=== PATIENT | female | born 1980 ===

== ENCOUNTER 2017-04-07 16:00 | Emergency (ER) | payer MEDICAID ==
[2017-04-07 16:00] VITALS: BMI 39.0
[2017-04-07 16:11] VITALS: RESP 18; TEMP 97.6; O2SAT 98
--- NOTE | 2017-04-07 16:35 | ED PDOC ---
Arrival/HPI - General Chief Complaint: Lower Extremity Problem/Injury Time Seen by Provider: 04/07/17 16:09 Historian: Patient - History of Present Illness Narrative History of Present Illness (Text): 04/07/17 16:31 This 37 yo female with pmh fibromyalgia, depression, insomnia, presents to this Emergency department complaining of bilateral leg and feet swelling for 4 days. Patient stated these symptoms have intermittent for several months. Patient denies fever, shortness of breath, chest pain, abdominal pain, urinary symptoms, calf pain, skin rash, recent surgical procedure, recent travel, recent trauma, hormonal replacement use, blood disorder, dizziness, or abnormal gait. Time/Duration: Other (see hpi) Context: Home Past Medical History - Provider Review Nursing Documentation Reviewed: Yes - Infectious Disease Hx of Infectious Diseases: None - Cardiac Hx Cardiac Disorders: No - Pulmonary Hx Asthma: Yes Hx Bronchitis: Yes - Neurological Hx Neurological Disorder: No - HEENT Hx HEENT Disorder: No - Renal Hx Renal Disorder: No - Endocrine/Metabolic Hx Endocrine Disorders: No - Hematological/Oncological Hx Blood Disorders: No - Integumentary Hx Dermatological Disorder: No - Musculoskeletal/Rheumatological Hx Musculoskeletal Disorders: Yes - Gastrointestinal Hx Gastrointestinal Disorders: No - Genitourinary/Gynecological Hx Genitourinary Disorders: No - Psychiatric Hx Anxiety: Yes Hx Depression: Yes Hx Substance Use: No - Surgical History Hx Section: Yes (x1) Other/Comment: Lipoma removed to back of neck. - Anesthesia Hx Anesthesia: Yes Hx Anesthesia Reactions: No Hx Malignant Hyperthermia: No - Suicidal Assessment Feels Threatened In Home Enviroment: No Family/Social History - Physician Review Nursing Documentation Reviewed: Yes Family/Social History: Other (noncontributory) Smoking Status: Former Smoker Hx Alcohol Use: Yes Frequency of alcohol use: Socially Hx Substance Use: No Hx Substance Use Treatment: No Allergies/Home Meds Allergies/Adverse Reactions: Allergies No Known Allergies Allergy (Verified 04/07/17 16:05) Home Medications: Home Meds Medication Instructions Recorded Confirmed clonazePAM [Klonopin] 1 mg PO PRN PRN 06/17/15 04/07/17 Paroxetine HCl [Paxil] 20 mg PO DAILY 12/10/16 04/07/17 busPIRone [Buspar] 1 tab PO DAILY 12/10/16 04/07/17 Lamotrigine [Lamictal Xr] 100 mg PO DAILY 04/07/17 04/07/17 Review of Systems - Review of Systems Constitutional: Normal. absent: Fatigue, Weight Change, Fevers Eyes: Normal ENT: Normal Respiratory: Normal Cardiovascular: Normal Gastrointestinal: Normal Genitourinary Female: Normal Musculoskeletal: Normal Skin: Normal Neurological: Normal Endocrine: Normal Hemo/Lymphatic: Normal Psychiatric: Normal Physical Exam Vital Signs Temp Pulse Resp BP Pulse Ox 04/07/17 17:30 94 H 18 130/71 98 04/07/17 16:07 97.6 F 105 H 18 132/77 98 Temperature: Afebrile Blood Pressure: Normal Pulse: Regular Respiratory Rate: Normal Appearance: Positive for: Well-Appearing, Non-Toxic, Comfortable Pain Distress: None Mental Status: Positive for: Alert and Oriented X 3 - Systems Exam Head: Present: Atraumatic, Normocephalic Pupils: Present: PERRL Extroacular Muscles: Present: EOMI Conjunctiva: Present: Normal Mouth: Present: Moist Mucous Membranes Neck: Present: Normal Range of Motion Respiratory/Chest: Present: Clear to Auscultation, Good Air Exchange. No: Respiratory Distress, Accessory Muscle Use Cardiovascular: Present: Regular Rate and Rhythm, Normal S1, S2. No: Murmurs Abdomen: Present: Normal Bowel Sounds. No: Tenderness, Distention, Peritoneal Signs Back: Present: Normal Inspection Upper Extremity: Present: Normal Inspection, Normal ROM, NORMAL PULSES, Neurovascularly Intact, Capillary Refill < 2s. No: Cyanosis, Edema, Tenderness , Swelling, Erythema Lower Extremity: Present: Normal Inspection, NORMAL PULSES, Normal ROM, Neurovascularly Intact, Capillary Refill < 2 s. No: Edema, CALF TENDERNESS, Erythema, Deformity, Temperature Abnormalties Neurological: Present: GCS=15, CN II-XII Intact, Speech Normal Skin: Present: Warm, Dry, Normal Color. No: Rashes Psychiatric: Present: Alert, Oriented x 3, Normal Insight, Normal Concentration Medical Decision Making ED Course and Treatment: 04/07/17 18:26 Patient came complaining of b/l legs swelling and chronic pain. Labs were WNL. Venous doppler was negative for DVT. Patient stated she feels better. She was recommended to f/u PMD tomorrow. 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 Re-evaluation. Patient feels better. Discussed results and plan with patient who expresses understanding. All questions answered and there is agreement with the plan to discharge home with instructions. Patient stable for discharge. Return if symptoms persist or worsen. Re-evaluation Time: 18:29 Reassessment Condition: Re-examined, Improved - Lab Interpretations Lab Results: 04/07/17 17:00 04/07/17 17:00 Lab Results 04/07/17 17:00: WBC 8.6, RBC 4.36, Hgb 12.1, Hct 37.8, MCV 86.7, MCH 27.8, MCHC 32.0, RDW 14.9 H, Plt Count 313, MPV 11.2 H, Gran % 64.1, Lymph % (Auto) 28.8, Davison % (Auto) 5.0, Eos % (Auto) 1.9, Baso % (Auto) 0.2, Gran # 5.48, Lymph # ( Auto) 2.5, Davison # (Auto) 0.4, Eos # (Auto) 0.2, Baso # (Auto) 0.02 04/07/17 17:00: Urine HCG, Qual Negative 04/07/17 17:00: Sodium 139, Potassium 3.7, Chloride 103, Carbon Dioxide 25, Anion Gap 14, BUN 8, Creatinine 0.6 L, Est GFR ( Amer) > 60, Est GFR (Non -Af Amer) > 60, Random Glucose 110, Calcium 9.4, Total Bilirubin 0.3, AST 32, ALT 38, Alkaline Phosphatase 74, Total Protein 7.0, Albumin 3.8, Globulin 3.2, Albumin/Globulin Ratio 1.2 I have reviewed the lab results: Yes Interpretation: No clinic. lab abnormalty - RAD Interpretation Narrative RAD Interpretations (Text): 04/07/17 18:29 B/L Lower Extremity Venous Doppler: No DVT as per US Radiology Orders: 04/07/17 16:30 DUPLEX LOWER EXTRM VEIN BILAT [US] Stat - Medication Orders Current Medication Orders: Discontinued Medications Ketorolac Tromethamine (Toradol) 30 mg IVP STAT STA Stop: 04/07/17 16:31 Last Admin: 04/07/17 17:02 Dose: 30 mg MAR Pain Assessment Document 04/07/17 17:02 SF (Rec: 04/07/17 17:03 [facility] [id number]) Pain Reassessment Is this a pain reassessment? Yes Sleep Is patient sleeping during reassessment? No Presence of Pain Presence of Pain Yes Pain Scale Used Pain Scale Used Numeric Location Left, Right or Bilateral Bilateral Description Description Intermittent IVP Administration Document 04/07/17 17:02 (Rec: 04/07/17 17:03 [email or web address]) Charges for Administration # of IVP Administrations 1 Disposition/Present on Arrival - Present on Arrival Any Indicators Present on Arrival: No History of DVT/PE: No History of Uncontrolled Diabetes: No Urinary Catheter: No History of Decub. Ulcer: No History Surgical Site Infection Following: None - Disposition Have Diagnosis and Disposition been Completed?: Yes Diagnosis: Bilateral leg and foot pain Disposition: HOME/ ROUTINE Disposition Time: 18:30 Patient Plan: Discharge Patient Problems: Current Active Problems Problem Status Onset Bilateral leg and foot pain Acute Condition: IMPROVED Discharge Instructions (ExitCare): Chronic Pain (ED) Additional Instructions: Call private doctor for follow up visit in 1-2 days. I have attached a name for pain management as requested by you. Take medication as instructed with food. Return to emergency if symptoms worsen. Prescriptions: Famotidine [Pepcid] 40 mg PO DAILY #10 tablet Naproxen 500 mg PO BID PRN #14 tab PRN Reason: Pain, Severe (8-10) Referrals: Lia Mark MD [Primary Care Provider] - Follow up with primary Chencho Rodas MD [Staff Provider] - Follow up with primary Forms: [facility] (Georgian), WORK NOTE
[2017-04-07 17:32] LABS: BASO # 0.02 K/mm3 (0.0-2.0); BASO % 0.2 % (0.0-3.0); EOS # 0.2 (0.0-0.7); EOS % 1.9 % (1.5-5.0); GRAN # 5.48 (1.4-6.5); GRAN % 64.1 % (50.0-68.0); HEMOGLOBIN 12.1 g/dL (12.0-16.0); LYMPH # 2.5 (1.2-3.4); LYMPH % 28.8 % (22.0-35.0); MEAN CELL VOLUME 86.7 fl (80.0-105.0); MEAN CORPUSCULAR HEMOGLOBIN 27.8 pg (25.0-35.0); MEAN PLATELET VOLUME 11.2 fl (7.0-11.0); MONO # 0.4 (0.1-0.6); RBC 4.36 10^6/uL (3.5-6.1); RED CELL DISTRIBUTION WIDTH 14.9 % (11.5-14.5); WHITE BLOOD COUNT 8.6 10^3/ul (4.5-11.0)
[2017-04-07 17:41] LABS: ALB/GLOB RATIO 1.2 (1.1-1.8); ALBUMIN 3.8 g/dL (3.0-4.8); ALT/SGPT 38 U/L (7-56); AST/SGOT 32 U/L (14-36); BLOOD UREA NITROGEN 8 mg/dL (7-21); CALCIUM 9.4 mg/dL (8.4-10.5); GFR AFRICAN-AMERICAN > 60; GFR NON-AFRICAN AMERICAN > 60
[2017-04-07 18:43] VITALS: BP 128/78; PULSE 89
--- NOTE | 2017-04-07 19:29 | US ---
HISTORY: Leg pain and swelling. Evaluate for DVT PHYSICIAN(S): Karthikeyan Jamil MD. TECHNIQUE: Duplex sonography and color-flow Doppler with graded compression were used to evaluate the deep venous systems of both lower extremities. FINDINGS: The visualized deep venous systems of both lower extremities are sonographically normal and compressible. Normal wave forms and augmentation are seen. There is no sonographic evidence for deep venous thrombosis in the visualized segments of both lower extremities. IMPRESSION: No sonographic evidence for deep venous thrombosis in the visualized segments of both lower extremities.
== END 2017-04-07 18:42 | disposition home or self-care (01) ==
LOC: ED 16:00
DX: M79.605 Pain in left leg (principal); M79.604 Pain in right leg; M79.672 Pain in left foot; M79.671 Pain in right foot
CPT/HCPCS: 80053; 84703; 85025; 93970; 96374; 99285; J1885